=== PATIENT | female | born 1940 | race Two or more races ===

== ENCOUNTER 2016-02-27 07:15 | Inpatient (IN) | payer MEDICARE, BC ==
[~2016-02-27] VITALS: Ht 157.5 cm; Wt 59.0 kg
[2016-02-27] MEDS ORDERED: HYDROMORPHONE 1 MG/1 ML DISP.SYRIN ONE ×2 (07:37→09:45)
[2016-02-27] MEDS ORDERED: ONDANSETRON HCL/PF 4 MG/2 ML VIAL ONE (07:37)
[2016-02-27] MEDS ORDERED: HYDROMORPHONE 1 MG/1 ML DISP.SYRIN IV ONE ×2 (08:00→10:00)
[2016-02-27] MEDS ORDERED: ONDANSETRON HCL/PF - ER 4 MG/2 ML VIAL IV ONE (08:00)
[2016-02-27 09:36] LABS: EOSINOPHILS # (AUTO) 0.1 /CMM (0.0-0.7); EOSINOPHILS % (AUTO) 1.4 % (0.0-6.0); WHITE BLOOD COUNT (AUTO) 8.4 K/uL (4.3-11.0)
[2016-02-27 09:41] LABS: BASOPHILS % (AUTO) 0.3 % (0.0-2.0); DIFF TOTAL % 100 %; HEMATOCRIT 34 % (33-45); HEMOGLOBIN 10.8 g/dL (11.5-14.8); LYMPHOCYTES # (AUTO) 1.4 /CMM (0.8-4.8); LYMPHOCYTES % (AUTO) 16.2 % (20.0-44.0); MEAN CORPUSCULAR HEMOGLOBIN 28 PG (26.0-33.0); MEAN CORPUSCULAR HGB CONC 32 g/dl (31.0-36.0); MEAN CORPUSCULAR VOLUME 88 fL (82-100); MONOCYTES # (AUTO) 0.3 /CMM (0.1-1.30); MONOCYTES % (AUTO) 3.1 % (2.0-12.0); NEUTROPHILS # (AUTO) 6.6 /CMM (1.8-8.9); PLATELET COUNT (AUTO) 167 /CMM (150-450); RED BLOOD CELL COUNT(AUTO) 3.86 MIL/uL (4.0-5.2)
[2016-02-27 09:47] LABS: CALCIUM, SERUM 8.3 mg/dL (8.5-10.1); CREATININE 0.8 mg/dL (0.6-1.3); POTASSIUM 3.9 mmol/L (3.5-5.1)
[2016-02-27 09:51] LABS: INR 1.03 (0.87-1.13); PROTHROMBIN TIME 10.8 SECS (9.5-12.7)
[2016-02-27] MEDS ORDERED: CALC0.253 PO (10:13)
[2016-02-27] MEDS ORDERED: CHOL200026 PO (10:13)
[2016-02-27] MEDS ORDERED: ATEN50TA PO (10:13)
[2016-02-27] MEDS ORDERED: ENAL10TA PO (10:13)
[2016-02-27] MEDS ORDERED: TIZA4TAB4 PO (10:13)
[2016-02-27 11:00] VITALS: BP 93/48
[2016-02-27 11:21] VITALS: BP 93/48
[2016-02-27] MEDS ORDERED: ONDANSETRON HCL/PF 4 MG/2 ML VIAL IVP PRN (12:30)
[2016-02-27] MEDS ORDERED: ZOLPIDEM TARTRATE 5 MG TABLET PO PRN (12:30)
[2016-02-27] MEDS ORDERED: Z GUARD REMEDY 2 OZ OINT TP PRN (12:30)
[2016-02-27] MEDS ORDERED: HYDROCODONE/APAP 5/325MG 1 EACH TABLET PO PRN (12:30)
[2016-02-27] MEDS ORDERED: MAGNESIUM HYDROXIDE 30 ML UDC PO PRN (12:30)
[2016-02-27] MEDS ORDERED: MORPHINE SULFATE INJ 2 MG/ML DISP.SYRIN IV PRN (12:30)
[2016-02-27] MEDS ORDERED: MAG HYDROX/AL HYDROX/SIMETH 30 ML UDC PO PRN (12:30)
[2016-02-27] MEDS ORDERED: TIZANIDINE HCL 4 MG TABLET PO SCH (13:00)
[2016-02-27] MEDS ORDERED: IV SET PRIMARY PUMP SET 1 EA INFUS.SET MC ONE (13:13)
[2016-02-27] MEDS: IV D5/0.45 NACL 1,000 ML IV PRN (13:16)
[2016-02-27 14:19] LABS: IRON, SERUM 54 ug/dl (50-175); PERCENT SATURATION 12 % (14-33); TOTAL IRON BINDING CAPACITY 435 ug/dl (250-450)
[2016-02-27] MEDS: TIZANIDINE HCL 4 MG TABLET PO PRN (15:41)
[2016-02-27 15:50] VITALS: BP 109/63
[2016-02-27] MEDS ORDERED: DIAZEPAM 2 MG TABLET PO PRN (16:00)
[2016-02-27] MEDS: oxyCODONE IR immediate release 5 MG CAPSULE PO PRN ×2 (16:49→21:39)
[2016-02-27 20:00] VITALS: BP 84/57
[2016-02-27] MEDS ORDERED: IV SET PRIMARY 1 EA INFUS.SET MC ONE (20:18)
[2016-02-27] MEDS ORDERED: IV NS 0.9% 250 ML IV ONE ×2 (20:18→20:30)
[2016-02-28] VITALS (7 sets, daily range): BP systolic 97–132; BP diastolic 49–67
[2016-02-28] MEDS ORDERED: IV D5/0.45 NACL 1,000 ML IV ONE (05:22)
[2016-02-28] MEDS: MORPHINE SULFATE INJ 2 MG/ML DISP.SYRIN IV PRN ×4 (05:29→22:35)
[2016-02-28] MEDS: IV D5/0.45 NACL 1,000 ML IV PRN (05:30)
[2016-02-28 07:04] LABS: BASOPHILS % (AUTO) 0.4 % (0.0-2.0); DIFF TOTAL % 100 %; EOSINOPHILS # (AUTO) 0.1 /CMM (0.0-0.7); EOSINOPHILS % (AUTO) 0.9 % (0.0-6.0); HEMATOCRIT 28 % (33-45); HEMOGLOBIN 8.9 g/dL (11.5-14.8); LYMPHOCYTES # (AUTO) 1.1 /CMM (0.8-4.8); LYMPHOCYTES % (AUTO) 18.2 % (20.0-44.0); MEAN CORPUSCULAR HEMOGLOBIN 28 PG (26.0-33.0); MEAN CORPUSCULAR HGB CONC 32 g/dl (31.0-36.0); MEAN CORPUSCULAR VOLUME 87 fL (82-100); MONOCYTES # (AUTO) 0.5 /CMM (0.1-1.30); MONOCYTES % (AUTO) 7.4 % (2.0-12.0); NEUTROPHILS # (AUTO) 4.6 /CMM (1.8-8.9); NEUTROPHILS % (AUTO) 73.1 % (43.0-81.0); PLATELET COUNT (AUTO) 147 /CMM (150-450); RED BLOOD CELL COUNT(AUTO) 3.16 MIL/uL (4.0-5.2); WHITE BLOOD COUNT (AUTO) 6.3 K/uL (4.3-11.0)
[2016-02-28 07:12] LABS: INR 1.02 (0.87-1.13)
[2016-02-28 07:26] LABS: ALBUMIN 3.1 g/dL (3.4-5.0); BILIRUBIN,DIRECT 0.1 mg/dL (0.0-0.2); BILIRUBIN,TOTAL 0.7 mg/dL (0.2-1.0); CREATININE 0.8 mg/dL (0.6-1.3); INDIRECT BILIRUBIN 0.6 mg/dL (0.0-1.1); PHOSPHORUS 3.8 mg/dL (2.5-4.9); POTASSIUM 3.9 mmol/L (3.5-5.1); TOTAL PROTEIN, SERUM 5.8 g/dL (6.4-8.2)
[2016-02-28 07:35] LABS: THYROID STIMULATING HORMONE 1.346 uIU/mL (0.358-3.74)
[2016-02-28] MEDS ORDERED: BACITRACIN 50000 UNITS/VIAL ONE (08:15)
[2016-02-28] MEDS ORDERED: FENTANYL PF 100MCG/2ML AMPUL ONE ×3 (08:49→11:25)
[2016-02-28] MEDS ORDERED: MIDAZOLAM HCL 2 MG/2ML VIAL ONE (08:49)
[2016-02-28] MEDS ORDERED: HEMOSTATIC MATRIX 10 ML 1 EACH PAD MC ONE (10:42)
[2016-02-28] MEDS ORDERED: ANESTHESIA TRAY IN PYXIS 1 EA TRAY MC ONE (11:18)
[2016-02-28] MEDS ORDERED: SECONDARY IV SET 1 EA INFUS.SET MC ONE ×2 (12:29→17:17)
[2016-02-28] MEDS: Magnesium 1GM/D5W 100ML PREMIX 100 ML IV SCH ×2 (12:37→13:47)
[2016-02-28] MEDS: PANTOPRAZOLE 40 MG TABLET.DR PO SCH (12:46)
[2016-02-28] MEDS: CALCITRIOL 0.25 MCG CAPSULE PO SCH (12:47)
[2016-02-28] MEDS ORDERED: Magnesium 1GM/D5W 100ML PREMIX 100 ML IV SCH (14:00)
[2016-02-28] MEDS: ENALAPRIL MALEATE (10 MG) 10 MG TABLET PO SCH (16:00)
[2016-02-28] MEDS: ATENOLOL 50 MG TABLET PO SCH (16:00)
[2016-02-28] MEDS: ANCEF 1 GM/50 ML D5W IV SCH ×2 (17:21)
[2016-02-28] MEDS: oxyCODONE IR immediate release 5 MG CAPSULE PO PRN ×3 (17:22→23:41)
[2016-02-29] MEDS: oxyCODONE IR immediate release 5 MG CAPSULE PO PRN ×4 (02:51→20:38)
[2016-02-29] MEDS: ANCEF 1 GM/50 ML D5W IV SCH ×4 (02:51→08:06)
[2016-02-29] MEDS: IV D5/0.45 NACL 1,000 ML IV PRN (05:12)
[2016-02-29 06:15] LABS: BASOPHILS % (AUTO) 0.2 % (0.0-2.0); DIFF TOTAL % 100 %; EOSINOPHILS % (AUTO) 0.1 % (0.0-6.0); HEMATOCRIT 25 % (33-45); LYMPHOCYTES # (AUTO) 0.8 /CMM (0.8-4.8); MEAN CORPUSCULAR HEMOGLOBIN 29 PG (26.0-33.0); MEAN CORPUSCULAR HGB CONC 32 g/dl (31.0-36.0); MEAN CORPUSCULAR VOLUME 88 fL (82-100); MONOCYTES # (AUTO) 0.6 /CMM (0.1-1.30); MONOCYTES % (AUTO) 6.9 % (2.0-12.0); NEUTROPHILS # (AUTO) 7.5 /CMM (1.8-8.9); NEUTROPHILS % (AUTO) 83.8 % (43.0-81.0); PLATELET COUNT (AUTO) 121 /CMM (150-450); RED BLOOD CELL COUNT(AUTO) 2.79 MIL/uL (4.0-5.2); WHITE BLOOD COUNT (AUTO) 8.9 K/uL (4.3-11.0)
[2016-02-29 06:32] LABS: CALCIUM, SERUM 7.5 mg/dL (8.5-10.1); CREATININE 0.7 mg/dL (0.6-1.3); PHOSPHORUS 2.9 mg/dL (2.5-4.9); POTASSIUM 3.7 mmol/L (3.5-5.1)
[2016-02-29 08:00] VITALS: BP 92/57
[2016-02-29] MEDS: ACETAMINOPHEN 325 MG TABLET PO PRN ×2 (08:06→22:07)
[2016-02-29] MEDS: CALCITRIOL 0.25 MCG CAPSULE PO SCH (08:06)
[2016-02-29] MEDS: PANTOPRAZOLE 40 MG TABLET.DR PO SCH (08:06)
[2016-02-29] MEDS: ATENOLOL 50 MG TABLET PO SCH (08:11)
[2016-02-29] MEDS: ENOXAPARIN SODIUM 40 MG/0.4 ML DISP.SYRIN SQ SCH (08:11)
[2016-02-29] MEDS: ENALAPRIL MALEATE (10 MG) 10 MG TABLET PO SCH (08:12)
[2016-02-29] MEDS ORDERED: SECONDARY IV SET 1 EA INFUS.SET MC ONE ×3 (11:01→15:16)
[2016-02-29] MEDS: Magnesium 1GM/D5W 100ML PREMIX 100 ML IV SCH ×2 (11:06→12:33)
[2016-02-29] MEDS: MORPHINE SULFATE INJ 2 MG/ML DISP.SYRIN IV PRN ×2 (11:07→18:24)
[2016-02-29] MEDS ORDERED: Magnesium 1GM/D5W 100ML PREMIX 100 ML IV SCH (12:00)
[2016-02-29 12:08] LABS: ALBUMIN 2.8 g/dL (3.4-5.0); BILIRUBIN,DIRECT 0.2 mg/dL (0.0-0.2); BILIRUBIN,TOTAL 0.7 mg/dL (0.2-1.0); INDIRECT BILIRUBIN 0.5 mg/dL (0.0-1.1); TOTAL PROTEIN, SERUM 5.5 g/dL (6.4-8.2)
[2016-02-29] MEDS ORDERED: IV SET PRIMARY PUMP SET 1 EA INFUS.SET MC ONE (12:26)
[2016-02-29] MEDS: IV NS 0.9% 1,000 ML IV PRN (12:34)
[2016-02-29 13:15] LABS: LACTIC ACID 2.8 mmol/L (0.4-2.0)
[2016-02-29] MEDS ORDERED: FEE PK DOSING 1 MIN EA MC ONE (13:47)
[2016-02-29 14:11] LABS: *LACTIC ACID REFLEX FLAG YES
[2016-02-29] MEDS: PIPERACILLIN /TAZOBACTAM 2.25 G in IV D5W 50 ML IV SCH ×3 (14:14→23:09)
[2016-02-29 14:37] LABS: KETONES,URINE NEGATIVE (NEGATIVE); LEUKOCYTE ESTERASE ,URINE TRACE (NEGATIVE); PH,URINE 5.5 (5.0-8.0)
[2016-02-29 14:50] LABS: ADD UA MICROSCOPIC YES
[2016-02-29 14:56] LABS: ADD URINE CULTURE NO
[2016-02-29] MEDS: VANCOMYCIN 0.75 GM in IV D5W 250 ML IV SCH (15:19)
[2016-02-29 16:00] VITALS: BP 110/62
[2016-02-29 20:00] VITALS: BP 90/57
[2016-02-29 22:00] VITALS: BP 90/57
[2016-03-01] VITALS (13 sets, daily range): BP systolic 89–117; BP diastolic 50–66
[2016-03-01] MEDS: IV NS 0.9% 1,000 ML IV PRN (01:06)
[2016-03-01] MEDS: VANCOMYCIN 0.75 GM in IV D5W 250 ML IV SCH (03:56)
[2016-03-01] MEDS: PIPERACILLIN /TAZOBACTAM 2.25 G in IV D5W 50 ML IV SCH ×3 (06:04→17:24)
[2016-03-01] MEDS: oxyCODONE IR immediate release 5 MG CAPSULE PO PRN (06:05)
[2016-03-01 06:27] LABS: CALCIUM, SERUM 6.9 mg/dL (8.5-10.1); CREATININE 0.7 mg/dL (0.6-1.3); PHOSPHORUS 2.2 mg/dL (2.5-4.9); POTASSIUM 3.6 mmol/L (3.5-5.1)
[2016-03-01 08:12] LABS: BASOPHILS % (AUTO) 0.4 % (0.0-2.0); DIFF TOTAL % 100 %; EOSINOPHILS % (AUTO) 0.8 % (0.0-6.0); HEMATOCRIT 21 % (33-45); LYMPHOCYTES # (AUTO) 0.8 /CMM (0.8-4.8); LYMPHOCYTES % (AUTO) 14.2 % (20.0-44.0); MEAN CORPUSCULAR HEMOGLOBIN 28 PG (26.0-33.0); MEAN CORPUSCULAR HGB CONC 32 g/dl (31.0-36.0); MEAN CORPUSCULAR VOLUME 88 fL (82-100); MONOCYTES # (AUTO) 0.4 /CMM (0.1-1.30); MONOCYTES % (AUTO) 7.5 % (2.0-12.0); NEUTROPHILS # (AUTO) 4.4 /CMM (1.8-8.9); NEUTROPHILS % (AUTO) 77.1 % (43.0-81.0); PLATELET COUNT (AUTO) 96 /CMM (150-450); RED BLOOD CELL COUNT(AUTO) 2.36 MIL/uL (4.0-5.2); WHITE BLOOD COUNT (AUTO) 5.7 K/uL (4.3-11.0)
[2016-03-01] MEDS: CALCITRIOL 0.25 MCG CAPSULE PO SCH (08:17)
[2016-03-01] MEDS: PANTOPRAZOLE 40 MG TABLET.DR PO SCH (08:17)
[2016-03-01] MEDS: ATENOLOL 50 MG TABLET PO SCH (08:19)
[2016-03-01] MEDS: ENALAPRIL MALEATE (10 MG) 10 MG TABLET PO SCH (08:21)
[2016-03-01 08:52] LABS: HEMOGLOBIN 6.7 g/dL (11.5-14.8)
[2016-03-01] MEDS: ENOXAPARIN SODIUM 40 MG/0.4 ML DISP.SYRIN SQ SCH (09:00)
[2016-03-01 13:10] LABS: LYMPHOCYTES % (MANUAL) 16 % (16-48)
[2016-03-01 13:11] LABS: ANISOCYTOSIS 2+; HYPOCHROMASIA 1+; PLATELET ESTIMATE DECREASED
[2016-03-01] MEDS ORDERED: IV NS 0.9% 250 ML IV ONE ×2 (13:13→20:25)
[2016-03-01] MEDS ORDERED: BLOOD IV SET 1 EA INFUS.SET MC ONE ×2 (13:14→20:25)
[2016-03-01] MEDS ORDERED: K PHOS NEUTRAL 250 MG TABLET PO ONE (15:00)
[2016-03-01] MEDS ORDERED: VANCOMYCIN 1 GM in IV D5W 250 ML IV SCH (17:00)
[2016-03-01] MEDS: SENNOSIDES/DOCUSATE SODIUM 1 TAB TABLET PO SCH (17:25)
[2016-03-01] MEDS: LACTOBACILLUS RHAMNOSUS GG 1 EACH CAP.SPRINK PO SCH (17:25)
[2016-03-01] MEDS: ACETAMINOPHEN 325 MG TABLET PO PRN (21:21)
[2016-03-02] MEDS: IV NS 0.9% 1,000 ML IV PRN ×2 (00:20→16:56)
[2016-03-02] MEDS: PIPERACILLIN /TAZOBACTAM 2.25 G in IV D5W 50 ML IV SCH ×5 (00:20→23:32)
[2016-03-02 06:47] LABS: BASOPHILS % (AUTO) 0.3 % (0.0-2.0); DIFF TOTAL % 100 %; EOSINOPHILS # (AUTO) 0.1 /CMM (0.0-0.7); EOSINOPHILS % (AUTO) 1.5 % (0.0-6.0); HEMATOCRIT 28 % (33-45); HEMOGLOBIN 9.3 g/dL (11.5-14.8); LYMPHOCYTES # (AUTO) 0.9 /CMM (0.8-4.8); LYMPHOCYTES % (AUTO) 15.8 % (20.0-44.0); MEAN CORPUSCULAR HEMOGLOBIN 29 PG (26.0-33.0); MEAN CORPUSCULAR HGB CONC 33 g/dl (31.0-36.0); MEAN CORPUSCULAR VOLUME 88 fL (82-100); MONOCYTES # (AUTO) 0.4 /CMM (0.1-1.30); MONOCYTES % (AUTO) 6.4 % (2.0-12.0); NEUTROPHILS # (AUTO) 4.4 /CMM (1.8-8.9); PLATELET COUNT (AUTO) 109 /CMM (150-450); RED BLOOD CELL COUNT(AUTO) 3.22 MIL/uL (4.0-5.2); WHITE BLOOD COUNT (AUTO) 5.8 K/uL (4.3-11.0)
[2016-03-02 07:09] VITALS: BP 100/54
[2016-03-02 07:09] LABS: CALCIUM, SERUM 7.4 mg/dL (8.5-10.1); CREATININE 0.6 mg/dL (0.6-1.3); PHOSPHORUS 2.4 mg/dL (2.5-4.9); POTASSIUM 3.7 mmol/L (3.5-5.1)
[2016-03-02 07:10] VITALS: BP 100/54
[2016-03-02] MEDS: ENOXAPARIN SODIUM 40 MG/0.4 ML DISP.SYRIN SQ SCH (09:00)
[2016-03-02] MEDS: ENALAPRIL MALEATE (10 MG) 10 MG TABLET PO SCH (09:00)
[2016-03-02] MEDS: ATENOLOL 50 MG TABLET PO SCH (09:00)
[2016-03-02] MEDS: LACTOBACILLUS RHAMNOSUS GG 1 EACH CAP.SPRINK PO SCH ×2 (09:28→16:35)
[2016-03-02] MEDS: CALCITRIOL 0.25 MCG CAPSULE PO SCH (09:28)
[2016-03-02] MEDS: PANTOPRAZOLE 40 MG TABLET.DR PO SCH (09:28)
[2016-03-02] MEDS: oxyCODONE IR immediate release 5 MG CAPSULE PO PRN ×2 (10:49→16:35)
[2016-03-02] MEDS: VANCOMYCIN 1 GM in IV D5W 250 ML IV SCH (12:55)
[2016-03-02] MEDS ORDERED: POLYETHYLENE GLYCOL 3350 17 GM POWD.PACK PO ONE (13:30)
[2016-03-02 16:00] VITALS: BP 105/62
[2016-03-02] MEDS: SENNOSIDES/DOCUSATE SODIUM 1 TAB TABLET PO SCH (17:00)
[2016-03-02] MEDS ORDERED: K PHOS NEUTRAL 250 MG TABLET PO ONE (17:30)
[2016-03-02 20:00] VITALS: BP 100/58
[2016-03-02] MEDS: TIZANIDINE HCL 4 MG TABLET PO PRN (20:54)
[2016-03-03] MEDS: VANCOMYCIN 1 GM in IV D5W 250 ML IV SCH ×2 (00:24→13:03)
[2016-03-03] MEDS: IV NS 0.9% 1,000 ML IV PRN (03:50)
[2016-03-03] MEDS: MORPHINE SULFATE INJ 2 MG/ML DISP.SYRIN IV PRN ×2 (03:51→08:25)
[2016-03-03] MEDS: PIPERACILLIN /TAZOBACTAM 2.25 G in IV D5W 50 ML IV SCH ×2 (05:38→12:32)
[2016-03-03 07:06] LABS: BASOPHILS % (AUTO) 0.5 % (0.0-2.0); DIFF TOTAL % 100 %; EOSINOPHILS # (AUTO) 0.1 /CMM (0.0-0.7); EOSINOPHILS % (AUTO) 3.1 % (0.0-6.0); HEMATOCRIT 26 % (33-45); HEMOGLOBIN 8.7 g/dL (11.5-14.8); LYMPHOCYTES # (AUTO) 0.8 /CMM (0.8-4.8); LYMPHOCYTES % (AUTO) 19.3 % (20.0-44.0); MEAN CORPUSCULAR HEMOGLOBIN 29 PG (26.0-33.0); MEAN CORPUSCULAR HGB CONC 33 g/dl (31.0-36.0); MEAN CORPUSCULAR VOLUME 88 fL (82-100); MONOCYTES # (AUTO) 0.3 /CMM (0.1-1.30); MONOCYTES % (AUTO) 6.9 % (2.0-12.0); NEUTROPHILS % (AUTO) 70.2 % (43.0-81.0); PLATELET COUNT (AUTO) 120 /CMM (150-450); WHITE BLOOD COUNT (AUTO) 4.2 K/uL (4.3-11.0)
[2016-03-03 07:27] LABS: CALCIUM, SERUM 7.1 mg/dL (8.5-10.1); CREATININE 0.7 mg/dL (0.6-1.3); PHOSPHORUS 2.3 mg/dL (2.5-4.9); POTASSIUM 3.7 mmol/L (3.5-5.1)
[2016-03-03] MEDS: PANTOPRAZOLE 40 MG TABLET.DR PO SCH (08:27)
[2016-03-03] MEDS: CALCITRIOL 0.25 MCG CAPSULE PO SCH (08:28)
[2016-03-03] MEDS: LACTOBACILLUS RHAMNOSUS GG 1 EACH CAP.SPRINK PO SCH (08:28)
[2016-03-03] MEDS: ENOXAPARIN SODIUM 40 MG/0.4 ML DISP.SYRIN SQ SCH (08:33)
[2016-03-03] MEDS: ATENOLOL 50 MG TABLET PO SCH (08:34)
[2016-03-03] MEDS: ENALAPRIL MALEATE (10 MG) 10 MG TABLET PO SCH (08:35)
[2016-03-03] MEDS ORDERED: SENNOSIDES/DOCUSATE SODIUM 1 TAB TABLET PO PRN (11:00)
[2016-03-03] MEDS: oxyCODONE IR immediate release 5 MG CAPSULE PO PRN (12:37)
[2016-03-03] MEDS: TIZANIDINE HCL 4 MG TABLET PO PRN (14:13)
[2016-03-03] MEDS ORDERED: PIPE2.257 IV (14:30)
[2016-03-03] MEDS ORDERED: Oxycodone Hcl PO (14:30)
[2016-03-03] MEDS ORDERED: SENN1TAB6 PO (14:38)
== END 2016-03-03 16:30 | DRG 481 ==
LOC: EDBD 07:17 → ER 07:17 → MEDSG2 09:10
PROVIDERS: ADMIT Internal Medicine; ATTEND Internal Medicine
PROC: 0QSB04Z Reposition Right Lower Femur with Internal Fixation Device, Open Approach (ICD-10-PCS; principal; 2016-02-28 09:40)
PROC: 30233N1 Transfusion of Nonautologous Red Blood Cells into Peripheral Vein, Percutaneous Approach (ICD-10-PCS; 2016-03-01)
DX: M97.11XA Periprosthetic fracture around internal prosthetic right knee joint, initial encounter (principal); E44.0 Moderate protein-calorie malnutrition; W01.0XXA Fall on same level from slipping, tripping and stumbling without subsequent striking against object, initial encounter; Z96.653 Presence of artificial knee joint, bilateral; E83.42 Hypomagnesemia; D63.8 Anemia in other chronic diseases classified elsewhere; G89.29 Other chronic pain; Z87.891 Personal history of nicotine dependence; Z91.81 History of falling; Z96.641 Presence of right artificial hip joint; I10 Essential (primary) hypertension; Y93.9 Activity, unspecified; Y92.009 Unspecified place in unspecified non-institutional (private) residence as the place of occurrence of the external cause; Y99.9 Unspecified external cause status; Z68.23 Body mass index [BMI] 23.0-23.9, adult; M81.0 Age-related osteoporosis without current pathological fracture; K59.00 Constipation, unspecified; I95.9 Hypotension, unspecified; S50.811A Abrasion of right forearm, initial encounter
CPT/HCPCS: 36415; 71010-TC; 73560-TC; 73564-TC; 80048-TC; 80053-TC; 80061-TC; 80076-TC; 80202-TC; 81000-TC; 82272-TC; 82306; 82746; 82962-TC; 83540-TC; 83605-TC; 83735-TC; 84100-TC; 84443-TC; 85025-TC; 85730-TC; 86850-TC; 86901; 86921-TC; 87040-TC; 87081-TC; 87086-TC; 94799-TC; 97001-TC; 97003-TC; 97110-TC; 97530-TC; A4606; A6402; A6403; J0690; J1170; J1650; J2250; J2270; J2405; J2543; J3010; J3370; J3475; J3490; J7030; J7050; J7060; L1830; P9016-BL; Z7610